=== PATIENT | female | born 1980 | race African-American/Black ===

== ENCOUNTER 2018-08-25 18:08 | Inpatient (IN) | payer MEDICAID ==
[~2018-08-25] VITALS: Ht 165.1 cm; Wt 64.4 kg
[2018-08-25] MEDS ORDERED: SODIUM CHLORIDE 0.9% 1,000 ML IV ONE (19:02)
[2018-08-25] MEDS ORDERED: MORPHINE SULFATE 4 MG/ML CPJ (NOT FOR IM USE) IV STA (19:02)
[2018-08-25] MEDS ORDERED: ONDANSETRON HCL 4MG/2ML INJ IV STA (19:02)
[2018-08-25] MEDS ORDERED: FAMOTIDINE 20MG/2ML VIAL IV STA (19:02)
[2018-08-25 19:31] LABS: BASOPHILS % 1.3 % (0.0-2.0); EOSINOPHILS % 0.7 % (0.0-5.0); HEMATOCRIT. 37.9 % (36.0-48.0); HEMOGLOBIN. 12.6 g/dL (12.0-16.0); LYMPHOCYTES % 37.1 % (20.0-50.0); MEAN CORPUSCULAR HEMOGLOBIN 31.7 pg (28.0-32.0); MEAN CORPUSCULAR VOLUME 95.2 fL (81.0-99.0); MEAN PLATELET VOLUME 9.3 fl (7.4-10.4); MONOCYTES % 4.8 % (2.0-8.0); NEUTROPHILS % 56.1 % (40.0-76.0); PLATELET 196 x1000/uL (130-400); RED BLOOD CELL COUNT 3.98 mill/uL (4.2-5.4); RED CELL DISTRIBUTION WIDTH 23.6 % (11.6-14.6)
[2018-08-25 19:38] LABS: PROTHROMBIN TIME 10.4 sec (9.1-11.1)
[2018-08-25 19:56] LABS: PLATELET ESTIMATE NORMAL
[2018-08-25 20:23] LABS: CHLORIDE 98 mEq/L (98-107)
[2018-08-25 20:28] LABS: ETHANOL BLOOD 227 mg/dL
[2018-08-25] MEDS ORDERED: POTASSIUM CHLORIDE 20MEQ TABLET SR PO NR (20:30)
[2018-08-25] MEDS ORDERED: SODIUM CHLORIDE 0.9% 1000ML BAG (SEPSIS BOLUS) IV ONE (21:00)
[2018-08-25 22:13] LABS: HCG SCREEN NEGATIVE
[2018-08-25] MEDS ORDERED: IOHEXOL-300 100 ML BOTTLE ONE (22:14)
[2018-08-25] MEDS ORDERED: METHYLPREDNISOLONE SOD SUCC 125 MG/2 ML VIAL IV ONE (23:30)
[2018-08-25] MEDS ORDERED: DIPHENHYDRAMINE 50MG/ML VIAL IV ONE (23:30)
[2018-08-26] MEDS ORDERED: METRONIDAZOLE 500 MG PREMIX 100 ML IV NR
[2018-08-26] MEDS ORDERED: CEFTRIAXONE 2 G PREMIX 50 ML IV NR
[2018-08-26 05:50] VITALS: BP 125/74
[2018-08-26] MEDS ORDERED: LORAZEPAM 2MG/ML CPJ IV PRN (06:15)
[2018-08-26] MEDS ORDERED: GABA-531 PO (06:32)
[2018-08-26] MEDS ORDERED: METO-396 PO (06:33)
[2018-08-26] MEDS ORDERED: FLUO10CA25 PO (06:34)
[2018-08-26] MEDS ORDERED: NALT50TA5 GT (06:35)
[2018-08-26] MEDS: DEXT 5%/0.45% NACL 1000ML 1,000 ML IV SCH ×2 (06:52→20:08)
[2018-08-26] MEDS: ONDANSETRON HCL 4MG/2ML INJ IV PRN (06:53)
[2018-08-26 08:00] VITALS: BP 126/70
[2018-08-26] MEDS ORDERED: METRONIDAZOLE 500 MG PREMIX 100 ML IV SCH (08:00)
[2018-08-26] MEDS: PANTOPRAZOLE SODIUM 40 MG/VIAL IV SCH (08:24)
[2018-08-26] MEDS ORDERED: LEVOFLOXACIN 500MG PREMIX 100 ML IV SCH (09:00)
[2018-08-26] MEDS: MULTIVITAMINS,THER W-MINERALS TABLET PO SCH (11:19)
[2018-08-26] MEDS: FOLIC ACID 1MG TABLET PO SCH (11:19)
[2018-08-26] MEDS: THIAMINE HCL 100MG TABLET PO SCH (11:19)
[2018-08-26 12:00] VITALS: BP 120/78
[2018-08-26 16:00] VITALS: BP 129/88
[2018-08-26 18:13] VITALS: BP 129/88
[2018-08-26] MEDS ORDERED: ZOLPIDEM TARTRATE 5MG TABLET PO PRN (19:45)
[2018-08-26 20:00] VITALS: BP 130/84
[2018-08-27] VITALS (8 sets, daily range): BP systolic 117–142; BP diastolic 70–92
[2018-08-27] MEDS: HYDROCODONE/ACETAMINOPHEN 5/325MG TABLET PO PRN (09:32)
[2018-08-27] MEDS: PANTOPRAZOLE SODIUM 40 MG/VIAL IV SCH (09:33)
[2018-08-27] MEDS: FOLIC ACID 1MG TABLET PO SCH (09:33)
[2018-08-27] MEDS: MULTIVITAMINS,THER W-MINERALS TABLET PO SCH (09:33)
[2018-08-27] MEDS: THIAMINE HCL 100MG TABLET PO SCH (09:33)
[2018-08-27] MEDS: DEXT 5%/0.45% NACL 1000ML 1,000 ML IV SCH (09:57)
[2018-08-27] MEDS: ONDANSETRON HCL 4MG/2ML INJ IV PRN (10:03)
[2018-08-27] MEDS: LORAZEPAM 2MG/ML CPJ IV PRN (16:54)
[2018-08-28] VITALS: BP 128/52
[2018-08-28] MEDS: DEXT 5%/0.45% NACL 1000ML 1,000 ML IV SCH ×2 (00:52→13:40)
[2018-08-28] MEDS: LORAZEPAM 2MG/ML CPJ IV PRN ×2 (02:59→08:37)
[2018-08-28 04:00] VITALS: BP 134/72
[2018-08-28 07:28] LABS: BASOPHILS % 0.4 % (0.0-2.0); EOSINOPHILS % 0.3 % (0.0-5.0); HEMATOCRIT. 31.5 % (36.0-48.0); HEMOGLOBIN. 10.5 g/dL (12.0-16.0); LYMPHOCYTES % 33.8 % (20.0-50.0); MEAN CORPUSCULAR HEMOGLOBIN 31.6 pg (28.0-32.0); MEAN PLATELET VOLUME 8.7 fl (7.4-10.4); NEUTROPHILS % 61.5 % (40.0-76.0); PLATELET 130 x1000/uL (130-400); RED BLOOD CELL COUNT 3.32 mill/uL (4.2-5.4); RED CELL DISTRIBUTION WIDTH 22.7 % (11.6-14.6)
[2018-08-28 07:47] LABS: CHLORIDE 104 mEq/L (98-107)
[2018-08-28 08:00] VITALS: BP 115/74
[2018-08-28] MEDS: PANTOPRAZOLE SODIUM 40 MG/VIAL IV SCH (08:33)
[2018-08-28] MEDS: MULTIVITAMINS,THER W-MINERALS TABLET PO SCH (08:33)
[2018-08-28] MEDS: FOLIC ACID 1MG TABLET PO SCH (08:33)
[2018-08-28] MEDS: THIAMINE HCL 100MG TABLET PO SCH (08:33)
[2018-08-28 12:00] VITALS: BP 103/72
[2018-08-28] MEDS: HYDROCODONE/ACETAMINOPHEN 5/325MG TABLET PO PRN (13:44)
[2018-08-28 15:45] VITALS: BP 103/62
[2018-08-28 16:00] VITALS: BP 114/82
== END 2018-08-28 17:20 | disposition short-term general hospital (02) | DRG 775 ==
LOC: ER 18:08 → 5WST 23:55 → EDBEDREQTM 23:58 → EDBEDREQ 23:58 → ENRESERV 08-26 03:43 → EDBEDREQSVC 08-26 04:41
PROVIDERS: ADMIT Hospitalist; ATTEND Hospitalist
DX: F10.229 Alcohol dependence with intoxication, unspecified (principal); K85.90 Acute pancreatitis without necrosis or infection, unspecified; E87.6 Hypokalemia; F10.239 Alcohol dependence with withdrawal, unspecified; F17.200 Nicotine dependence, unspecified, uncomplicated; F32.9 Major depressive disorder, single episode, unspecified; K52.9 Noninfective gastroenteritis and colitis, unspecified; K86.1 Other chronic pancreatitis; F41.9 Anxiety disorder, unspecified; Z88.8 Allergy status to other drugs, medicaments and biological substances
CPT/HCPCS: 36415; 71045; 74177; 83605; 83735; 84703; 93005; 96361; 96374; 96375; 99291; C1893; C9113; G0482; J0696; J1200; J1956; J2060; J2270; J2405; J2930; J3490; J7030; Q9967